=== PATIENT | female | born 1975 | race Caucasian/White ===

== ENCOUNTER 2021-11-16 01:36 | Day surgery (SDC) | payer BC, SELFPAY ==
[2021-11-05 11:53] VITALS: BMI 35.6
[2021-11-16 08:11] VITALS: BP 137/91; PULSE 67; RESP 18; TEMP 36.5; O2SAT 98; BMI 39.4
[2021-11-16] MEDS: LACTATED RINGERS 1,000 ML 150 ML IV CONT (08:29)
--- NOTE | 2021-11-16 09:00 | WPDANESEPPF ---
Anes - Initial Pre Proc Eval Procedure: Operation Date: 11/16/21 09:15 Proposed Procedures p Screening Colonoscopy - Kwan Solomon MD Date/Time: 11/16/21 09:00 Surgeon: Kwan Solomon MD Pre Op Diagnosis: neoplasm screening Patient Data Age: 46 Gender: F Height: 1.68 m Weight: 110.7 kg Last Vital Signs Temp 97.7 F 11/16/21 08:11 Pulse 67 11/16/21 08:11 Resp 18 11/16/21 08:11 BP 137/91 H 11/16/21 08:11 Pulse Ox 98 11/16/21 08:11 O2 Del Method Room Air 11/16/21 08:11 Allergies Allergy/AdvReac Type Severity Reaction Status Date / Time No Known Allergies Allergy Verified 11/16/21 08:10 Home Medications Medication Instructions Recorded Confirmed Type amlodipine 5 mg tablet See Rx Instructions .Route 10/15/21 11/05/21 Rx .COMPLEX #90 tabs atorvastatin 80 mg tablet See Rx Instructions .Route 10/15/21 11/05/21 Rx .COMPLEX #90 tabs duloxetine 30 mg capsule,delayed 30 mg PO DAILY #30 caps 10/15/21 11/05/21 Rx release Patient hx anesthesia problems: none Family hx anesthesia problems: none Results Review: All pre-operative results and documents have been reviewed as part of the pre-operative evaluation. [facility] Past Medical History Medical History Anxiety Carotid artery dissection Hyperlipidemia LDL goal <130 Hypertension Melanoma Stroke Surgical History Surgical History History of tubal ligation Previous section x 3 Status post surgical removal of malignant neoplasm of skin Family History Family History Father Patient's father is in good health Mother Family history of elevated blood lipids Social History Social History Smoking status: Never smoker Alcohol intake: never Substance use: never Substance use type: does not use Living arrangements: with family Spiritual care concerns: No Anes - Eval Final PreProcedure Day of Procedure 11/16/21 09:00 Patient weight: morbidly obese Heart: regular rate and rhythm Lungs: clear to auscultation Airway: Mallampati scale class II Neurological: alert and oriented Last oral intake: >/= 8 hours ASA classification: III Emergent: no Anesthetic plan: proceed Anesthesia type and monitoring: general GIVS and standard monitoring Results Review: All pre-operative results and documents have been reviewed as part of the pre-operative evaluation. Informed Consent: The patient's anesthetic plan and its attendant risks and benefits were discussed with the patient/family/POA. Questions were solicited and answers provided to the satisfaction of the patient/family/POA.
--- NOTE | 2021-11-16 09:04 | PM.HPGS ---
History of Present Illness History of Present Illness Consent: Risks, benefits, and alternatives have been discussed and questions answered. Patient agrees to proceed with procedure. Chief complaint: neoplasm screening Narrative: Ana Mukherjee is a 46 year old female here for first screening colonoscopy Review of Systems Constitutional: Constitutional: Denies headache(s) and Denies weakness Eyes: Eyes: Denies blurry vision ENT: Reports Normal hearing present, Denies headache(s) and Denies neck pain Cardiovascular: Cardiovascular: Denies chest pain and Denies dyspnea Respiratory: Respiratory: Denies dyspnea Gastrointestinal: Gastrointestinal: Reports no additional gastrointestinal complaints Genitourinary: Genitourinary: Denies dysuria Musculoskeletal: Musculoskeletal: Denies neck pain Integumentary/Breasts: Skin/Breast: Denies dry skin Neurologic: Reports Normal hearing present, Denies headache(s) and Denies weakness Psychiatric: Psychiatric: Denies anxiety Endocrine: Endocrine: Denies change in body appearance Hematologic/Lymphatic: Hematologic/Lymphatic: Denies easy bleeding Allergic/Immunologic: Allergic/Immunologic: Denies urticaria PMF Past Medical History Medical History (Updated 11/16/21 @ 09:05 by Kwan Solomon MD) Anxiety Carotid artery dissection Colon cancer screening Hyperlipidemia LDL goal <130 Hypertension Melanoma Stroke Surgical History Surgical History History of tubal ligation Previous section x 3 Status post surgical removal of malignant neoplasm of skin Family History Family History Father Patient's father is in good health Mother Family history of elevated blood lipids Social History Social History Smoking status: Never smoker Alcohol intake: never Substance use: never Substance use type: does not use Living arrangements: with family Spiritual care concerns: No Meds Home Medications and Allergies Home Medications Medication Instructions Recorded Confirmed Type amlodipine 5 mg tablet See Rx Instructions .Route 10/15/21 11/05/21 Rx .COMPLEX #90 tabs atorvastatin 80 mg tablet See Rx Instructions .Route 10/15/21 11/05/21 Rx .COMPLEX #90 tabs duloxetine 30 mg capsule,delayed 30 mg PO DAILY #30 caps 10/15/21 11/05/21 Rx release Allergies Allergy/AdvReac Type Severity Reaction Status Date / Time No Known Allergies Allergy Verified 11/16/21 08:10 Vital Signs Vital Signs - 24 hr 11/16/21 08:11 Temperature 97.7 F Pulse Rate 67 Respiratory Rate 18 Blood Pressure 137/91 H Pulse Oximetry 98 Oxygen Delivery Room Air Exam Const: General: comfortable and no acute distress HENMT: General nose exam: Normal nares present Eyes: General: appearance normal, both eyes and all related structures Neck: Neck: no JVD Resp: Auscultation: clear to auscultation bilaterally Cardio: Rate: regular rate Rhythm: regular rhythm GI: Inspection: non-distended GI Palp: Yes Soft to palpation Skin: General skin exam: normal color Neuro: General: gait normal Speech: normal speech Extrem: General: normal to inspection Psych: Mental Status: mental status grossly normal Assessment and Plan Assessment and plan (1) Colon cancer screening: Code(s): Z12.11 - Encounter for screening for malignant neoplasm of colon Status: Acute Assessment and Plan: colonoscopy
[2021-11-16 09:31] VITALS: BP 134/78; PULSE 60; RESP 20; O2SAT 99
[2021-11-16 09:41] VITALS: BP 114/69; PULSE 76; RESP 22; O2SAT 97
[2021-11-16 09:51] VITALS: BP 130/78; PULSE 59; RESP 18; O2SAT 100
== END 2021-11-16 10:04 | disposition home or self-care (01) ==
PROVIDERS: PCP Internal Medicine; Visit Provider Internal Medicine Gastroenterology
PROC: 0DJD8ZZ Inspection of Lower Intestinal Tract, Via Natural or Artificial Opening Endoscopic (ICD-10-PCS; CPT 45378; principal; 2021-11-16 09:15)
DX: Z12.11 Encounter for screening for malignant neoplasm of colon (principal); D12.3 Benign neoplasm of transverse colon; K64.8 Other hemorrhoids; I10 Essential (primary) hypertension; E78.5 Hyperlipidemia, unspecified; F41.9 Anxiety disorder, unspecified; E66.01 Morbid (severe) obesity due to excess calories; Z68.39 Body mass index [BMI] 39.0-39.9, adult
CPT/HCPCS: 45385; 88305; J2704; J7120

== ENCOUNTER → 2022-09-15 14:56 | Outpatient (CLI) | payer BC, SELFPAY ==
--- NOTE | ~2022-09-15 | XR_ITS ---
EXAM: XR foot LT min 3V DATE: 09/15/2022 15:13 HISTORY: M79.672 - Pain in left foot;lat pain, twisted foot 1 mo ago . COMPARISON: None available. FINDINGS: Normal mineralization. No fracture or dislocation. Eccentric sclerotic focus in the fourth metatarsal shaft, no aggressive features, likely old NOF and of doubtful clinical significance. No l ytic lesion. Mild scattered degenerative change, most evident at the first MTP joint. No erosion or p eriosteal change. Soft tissues within normal limits. IMPRESSION: No acute osseous finding in the left foot. Reviewed, dictated and finalized at location K.
== END ==
PROVIDERS: PCP Internal Medicine; Visit Provider Nurse Practitioner
DX: M79.672 Pain in left foot (principal)
CPT/HCPCS: 73630

== ENCOUNTER 2023-09-22 08:11 | Outpatient (CLI) | payer BC, SELFPAY ==
[2023-09-22 18:51] LABS: Basophils Percent Auto 0.5 % (0.2-1.2); Eosinophils Absolute Auto 0.1 K/mm3 (0-0.3); Eosinophils Percent Auto 1.6 % (0-4.4); Hematocrit 39.1 % (37.0-47.0); Hemoglobin 12.4 g/dL (12.0-15.0); Immature Granulocyte Absolute 0.02 K/mm3 (0.00-0.031); Immature Granulocyte Percent A 0.2 % (0-0.5); Lymphocytes Absolute Auto 2.16 K/mm3 (0.9-3.2); Lymphocytes Percent Auto 24.7 % (18.3-44.2); Mean Corpuscular HGB Conc 31.7 g/dl (32-36); Mean Corpuscular Hemoglobin 28.6 pg (26-34); Mean Corpuscular Volume 90.3 fl (80-100); Mean Platelet Volume 8.4 fl (7.4-10.4); Monocytes Absolute Auto 0.7 K/mm3 (0.1-0.6); Monocytes Percent Auto 7.4 % (2.6-8.5); Neutrophils Absolute Auto 5.7 K/mm3 (1.3-6.7); Neutrophils Percent Auto 65.6 % (45.5-73.1); Platelet Count Result 386 k/mm3 (150-375); Red Blood Count 4.33 M/mm3 (4.2-5.4); Red Cell Distribution Width 12.9 % (11.5-14.5); White Blood Count 8.8 K/mm3 (4.5-10.0)
[2023-09-22 19:13] LABS: Alanine Aminotransferase 19 U/L (6-35); Albumin Level 4.2 g/dL (3.5-5.1); Alkaline Phosphatase 71 U/L (38-126); Anion Gap 5 mmol/L (4-12); Aspartate Amino Transferase 42 U/L (14-36); Bilirubin,Total 0.7 mg/dL (0.2-1.3); Blood Urea Nitrogen 7 mg/dL (7-17); Calcium 8.7 mg/dL (8.4-10.2); Carbon Dioxide 29 mmol/L (22-30); Chloride 104 mmol/L (98-107); Cholesterol 142 mg/dL (0-200); Estimated Glomerular Filt Rate > 60; Glucose 75 mg/dL (65-110); HDL Direct 29 mg/dL; Potassium 3.9 mmol/L (3.4-5.0); Sodium 138 mmol/L (137-145); Triglycerides 168 mg/dL (<150)
[2023-09-22 19:25] LABS: LDL Cholesterol Direct 88 mg/dL
[2023-09-22 19:49] LABS: Vitamin D 25 Hydroxy 49.5 ng/mL
[2023-09-22 22:42] LABS: Hemoglobin A1C 5.7 % (<5.7)
== END 2023-09-22 08:12 | disposition home or self-care (01) ==
LOC: ANHGOSHLAB 08:13
PROVIDERS: PCP Internal Medicine; Visit Provider Clinical Nurse Specialist
DX: E55.9 Vitamin D deficiency, unspecified (principal); R73.9 Hyperglycemia, unspecified; I10 Essential (primary) hypertension; Z13.228 Encounter for screening for other metabolic disorders
CPT/HCPCS: 36415; 80053; 80061; 82306; 83036; 84443; 85025

== ENCOUNTER 2024-07-02 10:13 | Outpatient (CLI) | payer BC, SELFPAY ==
--- NOTE | ~2024-07-02 | XR_ITS ---
Cervical Spine: AP, lateral, open-mouth views Clinical History: Pain Findings: There is mild reversal of the normal cervical lordosis. No fracture or subluxation seen The intervertebral disc spaces are well maintained. Pre-vertebral soft tissues are unremarkable. Impression: Mild reversal of the normal cervical lordosis. Reviewed, dictated and finalized at [facility]. Impression: Mild reversal of the normal cervical lordosis.
== END 2024-07-02 10:14 | disposition home or self-care (01) ==
PROVIDERS: PCP Nurse Practitioner; Visit Provider Nurse Practitioner
DX: M54.12 Radiculopathy, cervical region (principal); M25.551 Pain in right hip
CPT/HCPCS: 72040

== ENCOUNTER 2024-12-31 13:44 | Outpatient (CLI) | payer BC, SELFPAY ==
--- NOTE | ~2024-12-31 | XR_ITS ---
[id number] Indication: R cervical region, pain x 6-9 months, no inj, no surgery Comparison: None Findings: The vertebral heights are intact. No fracture or subluxation. The disc heights are intact. Soft tissues unremarkable Impression: No acute abnormality. Reviewed, dictated and finalized at location P. Impression: No acute abnormality.
== END 2024-12-31 13:45 | disposition home or self-care (01) ==
LOC: GOSHIMG 13:44
PROVIDERS: PCP Clinical Nurse Specialist; Visit Provider Clinical Nurse Specialist
DX: M54.12 Radiculopathy, cervical region (principal)
CPT/HCPCS: 72040

== ENCOUNTER 2025-01-24 14:54 | Outpatient (CLI) | payer BC, SELFPAY ==
--- NOTE | ~2025-01-24 | MR_ITS ---
EXAMINATION: MR cervical spine wo con DATE: 01/24/2025 15:56 INDICATION: Radiculopathy, cervical region. TECHNIQUE: Magnetic resonance imaging (MRI) of the cervical spine was performed without intravenous contrast. COMPARISON: Cervical spine radiographs 12/31/2024 FINDINGS: There is 3 degrees levocurvature of cervical spine. There is mild kyphosis of cervical spine. Vertebral body heights are normal. Intervertebral disc heights are normal. The spinal cord signal intensity is normal. The following disc levels are specifically discussed: C2-C3: The disc does not extend beyond the endplate margin. There is mild left uncovertebral joint osteoarthritis. There is ankylosis of left facet joint with mild hypertrophy. There is mild left neural foraminal stenosis. There is no central canal stenosis. C3-C4: There is a central protrusion. There is mild bilateral uncovertebral joint osteoarthritis. There is mild bilateral facet joint osteoarthritis. There is mild bilateral neural foraminal stenosis. There is mild central canal stenosis. C4-C5: There is a central protrusion with annular fissure. There is moderate right and mild left uncovertebral joint osteoarthritis. There is mild bilateral facet joint osteoarthritis. There is mild bilateral neural foraminal stenosis. There is mild central canal stenosis. C5-C6: There is a central protrusion. There is mild left uncovertebral joint osteoarthritis. There is mild bilateral facet joint osteoarthritis. There is no neural foraminal stenosis. There is no central canal stenosis. C6-C7: There is a central protrusion. There is no uncovertebral joint osteoarthritis. There is no facet joint osteoarthritis. There is no neural foraminal stenosis. There is no central canal stenosis. C7-T1: There is a central protrusion. There is no uncovertebral joint osteoarthritis. There is mild bilateral facet joint osteoarthritis. There is no neural foraminal stenosis. There is no central canal stenosis. IMPRESSION: 1. Mild cervical spondylosis. Reviewed, dictated and finalized at location E.
== END 2025-01-24 14:55 | disposition home or self-care (01) ==
PROVIDERS: PCP Clinical Nurse Specialist; Visit Provider Clinical Nurse Specialist
DX: M47.22 Other spondylosis with radiculopathy, cervical region (principal)
CPT/HCPCS: 72141